=== PATIENT | male | born 1950 | race Caucasian/White ===

== ENCOUNTER → 2021-04-30 | Outpatient (CLI) | payer MEDICARE, OTHER | LOC: HEART CORB 13:30 | DX: R06.02 Shortness of breath (principal); I25.10 Atherosclerotic heart disease of native coronary artery without angina pectoris; I50.32 Chronic diastolic (congestive) heart failure | CPT/HCPCS: 93306 ==

== ENCOUNTER → 2022-05-27 | Outpatient (CLI) | payer MEDICARE, OTHER | LOC: HEART CORB 08:27 | DX: I73.9 Peripheral vascular disease, unspecified (principal) ==

== ENCOUNTER → 2022-06-20 | Outpatient (CLI) | payer MEDICARE, OTHER | LOC: CT 14:46 | DX: R09.89 Other specified symptoms and signs involving the circulatory and respiratory systems (principal); Z01.812 Encounter for preprocedural laboratory examination; I70.203 Unspecified atherosclerosis of native arteries of extremities, bilateral legs; I72.3 Aneurysm of iliac artery; I77.811 Abdominal aortic ectasia | CPT/HCPCS: 36415; 75635; 82565; Q9967 ==